=== PATIENT | female | born 1970 | race Caucasian/White ===

== ENCOUNTER → 2021-02-28 | Outpatient (CLI) | payer BC, OTHER | LOC: US 16:00 | DX: R60.9 Edema, unspecified (principal) | CPT/HCPCS: 93971 ==

== ENCOUNTER → 2022-07-04 | Outpatient (CLI) | payer BC | LOC: RAD 15:17 | DX: M25.552 Pain in left hip (principal); M25.551 Pain in right hip | CPT/HCPCS: 72050; 72100; 73522 ==